=== PATIENT | female | born 1970 | race Hispanic/Latino ===

== ENCOUNTER 2016-08-23 22:22 | Emergency (ER) | payer OTHER ==
[~2016-08-23] VITALS: Ht 167.6 cm; Wt 101.7 kg
[~2016-08-23 22:22] MED LIST: HYDR-4003 PO; ONDA8TAB7 PO; OXYC-284 PO; TAMS0.4C29 PO
[2016-08-23 22:24] VITALS: BP 138/81; PULSE 76; RESP 18; O2SAT 100
--- NOTE | 2016-08-23 22:31 | ED.REPORT ---
HPI-Abd Pain F 40 and Over Date of Service August 23, 2016 ED Provider: Manan Estrada MD The patient is a 46 year old female with a history of nephrolithiasis, cholelithiasis, and gastritis who presents to the ED with epigastric pain onset suddenly just prior to arrival, while eating corn on the cob. The pain is described as "stabbing" in nature, with radiation to her back and throat. The patient initially felt as though her throat was closing and she was having difficulty breathing, but this has since resolved. Associated symptoms include nausea and vomiting. The patient denies choking or other symptoms. She has had similar symptoms in the past, relieved with Prilosec. The patient speaks Maldivian and her relative was translating. Nursing Notes Stated Complaint: THROAT CLOSING, PAIN IN MIDDLE/RIBS Chief Complaint: Female Abdominal Pain Nursing Notes Reviewed: Yes (VHX not reconciled) Allergies: Coded Allergies: Penicillins (Verified Allergy, Severe, RASH, 08/23/16) Scheduled Famotidine (Famotidine) 20 Mg Tablet 20 MG PO BID In Maldivian please Omeprazole Magnesium (Prilosec Otc) 20 Mg Tablet.dr 20 MG PO DAILY In Maldivian please Tamsulosin ER (Tamsulosin ER) 0.4 Mg Cap.er.24h 0.4 MG PO DAILY Scheduled PRN Hydrocodone-Acetaminophen 5-325 mg (Hydrocodone-Acetaminophen 5-325 mg) 1 Each Tablet 1 TABLET PO TID PRN PRN For Pain Ondansetron ODT (Zofran ODT) 8 Mg Tablet 8 MG PO TID PRN PRN For Nausea Oxycodone HCl/Acetaminophen 5-325 (Percocet 5-325) 1 Each Tablet 2 EACH PO Q4 PRN PRN For Pain General Time Seen by MD: 22:30 Chief Complaint Abdominal pain Hx Obtained From: Patient Arrived By: Walk-in Sudden in Onset?: Yes Onset Occurred: Just prior to arrival Context of Onset: Eating Symptom Duration: Since onset Location: : Epigastric Quality: Painful, Stabbing Radiation: : Back (and throat) Severity: Current: Moderate Severity: Maximum: Moderate Pertinent Negative: Relieved by nothing Context Related History: Reports: Abdominal surgery, Cholelithiasis Recent Healthcare: No recent doctor visit Similar Sx Previous: Yes Past Medical History Past Medical History 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 Ears / Nose / Throat: Reports: Throat pain, Throat swelling Physical Exam Physical Exam Notes: Vital Signs Vital Signs (First) Date Time Temp Pulse Resp B/P Pulse Ox O2 Delivery O2 Flow Rate FiO2 08/23/16 22:24 36.7 76 18 138/81 100 Room Air Initial VS: Reviewed Head / Eyes: Atraumatic, Normocephalic ENT: Conjunctiva normal, No scleral icterus Neck: Supple, Full range of motion Skin: Warm, Dry, No cyanosis Neurologic: Alert, Oriented, Nonfocal Psychiatric: Mood/affect normal, Behavior normal, Normal thought content General/Constitutional: Awake, Alert Appearance / Presentation: Positive: Obese (Mild) Respiratory / Chest: Breath sounds NL, Breath sounds = bilat, No respiratory distress Cardiovascular: Heart rate NL, Regular rhythm, Heart sounds NL Abdomen: Soft Tenderness/Guarding/Rebound: Positive: Tender epigastric, Negative: Tender RUQ... Interpretation & Diagnostics ECG Interpretation ECG Interpretation: Sinus rhythm rate 74 No abnormalities Time: 22:38 Interpreted by: ED physician Re-Eval/Medical Decision Med Decision/Clinical Course This is a pleasant 46-year-old female presents with acute onset of epigastric pain radiating the back that occurred while eating corn. She reports it is somewhat similar to when she has had gastritis in the past, and she used to take some omeprazole but has not been recently. No fever, nausea vomiting, and no right upper quadrant involvement. She does have known cholelithiasis at least as identified by previous CT imaging. sHe has no prior cardiac history. Exam she appears mildly uncomfortable but notes tremors. She has trace epigastric tenderness, but no tenderness in the right upper quadrant, no Hopson' s sign is present. The abdomen is soft. Rest of her exam is normal. She states this is similar to previous gastritis, and empiric dose of a GI cocktail was administered with complete relief of symptoms. EKG was normal, with no ischemic findings, and clinically her presentation is very typical of gastritis. She then received a dose of famotidine. She was observed, had no recurrence of symptoms. At this point I am not finding indication for laboratory testing, the patient to be recently discharged with a prescription to restart her omeprazole, as well as some when necessary famotidine. She family are comfortable with this. Date of return precautions reviewed. Patient's discharge asymptomatic in good condition. Source of Hx: Old records Re-Evaluation/Progress #1: Time of Eval: 23:00 Patient Status: Condition resolved Re-Evaluation/Progress Note: Patient's symptoms have completely resolved with a GI cocktail. Re-Evaluation/Progress #2: Time of Eval: 23:40 Patient Status: Condition improved Re-Evaluation/Progress Note: Discussed with patient ECG results, diagnosis, and plan for discharge. Follow-up and return to the ER instructions given. Patient agrees with plan for care and all questions were addressed. Differential Diagnosis: Positive: Cholelithiasis (known, chronic), Gastritis, Negative: Abdominal aortic aneurysm, Acute abdominal pain, Appendicitis, Bladder outlet obstruct, C. diff colitis, Cholangitis, Cholecystitis, Contusion abdominal wall, Esophageal rupture, Glaucoma, Gun shot wound abdomen, Pancreatitis, Peritonitis, Sickle cell crisis, Stab wound abdomen, Trauma, abdominal Counseled Regarding: Diagnosis, Need for follow-up, When/why to return to ED Discharge & Departure Primary Impression: Gastritis Gastritis type: unspecified gastritis Chronicity: acute Gastritis bleeding : without bleeding Qualified Code: K29.00 - Acute gastritis without bleeding Disposition: Home Discharge Condition All VS Reviewed: Yes Condition: Improved Additional Instructions: 1. Your symptoms are very typical of a condition called gastritis, which is caused by an inflammation of the stomach, often due to over production of acid. 2. Recommend resuming the Prilosec that he used to take. This medicine works best if you take it every day, and it does often take several days to a week of taking it before really influences symptoms. Take 20mg daily. 3. You can take the medicine famotidine 20 mg which tends to work quite well for many people, it works faster, and can be taken as needed, and can be use used particularly in the first week where Prilosec has not had enough time to help. 4. Return if new or worsening symptoms. 5. If you need a primary care provider, follow up with the [facility]. Call for an appointment. GOOGLE TRANSLATE: 1. Kiana sntomas son muy tpicos de avril condicin llamada gastritis, que es causada por avril inflamacin del estmago, a menudo debido a la produccin de m s de cido. 2. Recomendar la reanudacin del Prilosec que nurys hank. Katalina medicamento funciona mejor si lo jayme todos los de jesus, y suele tardar varios de jesus o avril semana en tomarlo antes de que realmente influya en los sntomas. [place] 20 mg diarios. 3. Usted puede hank la medicina famotidine 20 mg que tiende a funcionar bastante michael para muchas personas, funciona ms rpido, y se puede hank segn sea necesario, y puede ser utilizado especialmente en la primera semana donde Prilosec no collins tenido tiempo suficiente para ayudar . 4. Devuelva si hay sntomas nuevos o que empeoran. 5. Si necesita un proveedor de atencin primaria, realice un seguimiento con la clnica de residencia de [facility]. Llame para avril shy. Referrals: [facility] (PCP) [facility] Scribe Attestation Portions of this note were transcribed by Norah Walton. I, Dr. Estrada, personally performed the history, physical exam, and medical decision-making; I reviewed and confirmed the accuracy of the information in the transcribed note. Signed by: Serina Kendrick, 08/24/2016, 00:05 copies to: [facility] Manan Estrada MD August 23, 2016 22:31 NORAH WALTON August 23, 2016 22:39
[2016-08-23] MEDS ORDERED: LidocaineVisc 2%:Antacid 1:1 10 mL Syringe PO ONE (22:40)
[2016-08-23] MEDS ORDERED: OMEP20TA24 PO (23:48)
[2016-08-23] MEDS ORDERED: FAMO20TA4 PO (23:48)
[2016-08-24 00:13] VITALS: BP 139/77; RESP 16; O2SAT 98
== END 2016-08-24 00:10 | disposition home or self-care (01) ==
LOC: SED 22:22
DX: K29.00 Acute gastritis without bleeding (principal); Z87.442 Personal history of urinary calculi; Z87.19 Personal history of other diseases of the digestive system; Z88.0 Allergy status to penicillin